=== PATIENT | male | born 1940 | race Caucasian/White ===

== ENCOUNTER → 2016-11-12 | Outpatient (CLI) | payer MEDICARE ==
[~2016-11-12] MED LIST: GADOBUTROL 10 MMOL/10 ML PFS ONE
== END | disposition home or self-care (01) ==
LOC: CFH 08:54 → EDSTATUS 10:15
PROVIDERS: ATTEND Family Medicine
DX: I67.82 Cerebral ischemia (principal); G31.9 Degenerative disease of nervous system, unspecified; R90.82 White matter disease, unspecified
CPT/HCPCS: 70553; A9585

== ENCOUNTER → 2017-05-05 | Outpatient (CLI) | payer MEDICARE ==
[~2017-05-05] MED LIST changes: +ATEN25TA PO; -GADOBUTROL 10 MMOL/10 ML PFS ONE; +LEVO750T26 PO; +LISI-170 PO; +OMEP20TA62 PO
== END | disposition home or self-care (01) ==
LOC: CFH 07:59
PROVIDERS: ATTEND Family Medicine
DX: J18.9 Pneumonia, unspecified organism (principal)
CPT/HCPCS: 71250

== ENCOUNTER → 2019-04-05 | Outpatient (CLI) | payer MEDICARE ==
[~2019-04-05] MED LIST changes: +OMNIPAQUE 350 MG/ML, 150 ML BOTTLE ONE
== END | disposition home or self-care (01) ==
LOC: CFH 09:38
PROVIDERS: ATTEND Radiology Radiation Oncology
DX: C61 Malignant neoplasm of prostate (principal); M51.36 Other intervertebral disc degeneration, lumbar region; Z90.49 Acquired absence of other specified parts of digestive tract
CPT/HCPCS: 74178; 82565; Q9967

== ENCOUNTER 2019-10-18 13:06 | Emergency (ER) | payer MEDICARE ==
[~2019-10-18] VITALS: Ht 185.4 cm; Wt 85.5 kg
[~2019-10-18 13:06] MED LIST changes: -OMNIPAQUE 350 MG/ML, 150 ML BOTTLE ONE
--- NOTE | 2019-10-18 13:25 | NUR ---
PT BROUGHT BACK FROM TRIAGE WITH CHIEF COMPLAINT OF LT LOWER ARM/ELBOW PAIN, BILAT KNEE PAIN WITH ABRASIONS AFTER GLF TRIPPING OVER CURB, DENIES HEAD INJ/LOC, DENIES ANTIOAGS. PT A&OX4
[2019-10-18] MEDS ORDERED: DIPH,PERTUSS(ACELL),TET VAC/PF 0.5 ML IM-VACC ONE ×2 (14:06→14:30)
[2019-10-18] MEDS ORDERED: NEOSPORIN OINT. PKT 1 PACKET ONE (14:11)
--- NOTE | 2019-10-18 14:19 | NUR ---
ER EMT at bedside for wound dressing.
[2019-10-18] MEDS ORDERED: HYDROcodone/APAP 5/325 TABLET PO ONE ×2 (14:30→16:30)
[2019-10-18 15:29] VITALS: BP 137/72
--- NOTE | 2019-10-18 15:52 | NUR ---
PATIENT RESTING IN GURNEY, SPOUSE AT BEDSIDE, CALL LIGHT WITHIN REACH, SIDE RAILS UP X2, NO FURTHER NEEDS AT THIS TIME.
[2019-10-18] MEDS ORDERED: HYDROcodone/APAP 5/325 TABLET ONE (16:21)
--- NOTE | 2019-10-18 16:25 | NUR ---
PATIENT C/O 09/06 RIGHT ELBOW PAIN, MEDICATED PER [facility]. TECH AT BEDSIDE TO DO SPLINT AND SLING.
--- NOTE | 2019-10-18 17:02 | NUR ---
Patient and spouse given discharge instructions and they have confirmed that they understand the instructions, explained prescription to patient and spouse, no further questions. All patient belongings gathered by patient, patient wheeled in stable condition to discharge desk with spouse at side.
== END 2019-10-18 17:03 | disposition home or self-care (01) ==
LOC: ED 14:52
DX: S52.92XA Unspecified fracture of left forearm, initial encounter for closed fracture (principal); I10 Essential (primary) hypertension; E78.00 Pure hypercholesterolemia, unspecified; W19.XXXA Unspecified fall, initial encounter; Y93.89 Activity, other specified; Y92.098 Other place in other non-institutional residence as the place of occurrence of the external cause; Y99.8 Other external cause status
CPT/HCPCS: 29105; 90471; 90715; 99284